=== PATIENT | male | born 1950 | race Caucasian/White ===

== ENCOUNTER 2017-12-01 14:17 | Observation (INO) ==
--- NOTE | 2017-12-01 14:24 | Emergency Department Note ---
Disposition Clinical Impression: Neck pain Disposition: Home, Self-Care Condition: Good Reasons to Return/Additional Instructions: Follow-up with your primary care physician/pain specialist and Cancer Center within the next 1-2 days for reevaluation. Please return sooner to the ER for any new or worsening symptoms such as worsening pain, development of fevers, nausea, vomiting, numbness, tingling, weakness. Referrals: Jamir Villanueva MD [Primary Care Provider] - Forms: ED Satisfaction Letter Time of Disposition: 18:54 Neck Injury/Pain HPI - General Chief Complaint: ED Neck Pain/Injury Stated Complaint: severe neck pain, sent from [facility] for scans Time Seen by Provider: 12/01/17 14:24 Source: patient Mode of arrival: ambulatory Limitations: no limitations Nursing Notes Reviewed: Yes Vital Signs Reviewed: Yes - History of Present Illness HPI Narrative: Patient is a 66-year-old male with past medical history of multiple myeloma, hypertension, diabetes. He has subsequent chronic back pain, spinal stimulator , morphine pump. He presents today due to sudden onset of neck discomfort. He began having neck discomfort around 9 AM this morning. He was not exerting himself, did not have any falls. He was seen at the cancer center and was given Dilaudid. He states that this did not help with his pain at all. He was sent over from the cancer center for concern for possible bony lesion of the cervical spine. They requested imaging of the neck. The patient himself denies any numbness, tingling, weakness, testing, shortness of breath, nausea, vomiting, fevers, diarrhea, abdominal pain, headache. - Related Data Home Medications Medication Instructions Recorded Confirmed Escitalopram [Lexapro] 20 mg PO DAILY 07/27/17 12/01/17 Levothyroxine [Synthroid] 112 mcg PO 0630 07/27/17 12/01/17 Metformin HCl [Metformin HCl ER] 1,000 mg PO DAILY 07/27/17 12/01/17 Omeprazole [PriLOSEC] 20 mg PO BID 07/27/17 12/01/17 amLODIPine [Norvasc] 5 mg PO DAILY 07/27/17 12/01/17 HYDROcodone/Acet 5/325 mg [[place] 1 tab PO Q6H PRN 12/01/17 12/01/17 5-325 mg] Morphine Sulfate/Pf [Morphine 1 each IT AD 12/01/17 12/01/17 IntraThecdal Pump] Tramadol HCl [Ultram] 50 mg PO BID PRN 12/01/17 12/01/17 Previous Rx's Medication Instructions Recorded Aspirin 81 mg PO DAILY #30 tab.chew 07/13/17 Ondansetron HCl [Zofran] 4 mg PO Q8H PRN #30 tablet 07/13/17 Prochlorperazine Maleate 10 mg PO Q6HR PRN #60 tablet 07/13/17 [Compazine] ALPRAZolam [Xanax 0.25 MG Tablet] 0.25 mg PO BID PRN #60 tablet 07/27/17 Lactulose 10 gm PO BID PRN #200 solution 08/26/17 Hydrocortisone 1% CREAM [Cortaid] 28 appl TP DAILY #1 bottle 10/13/17 Nystatin [Nystatin Suspension] 100,000 unit PO QID #1 bottle 10/27/17 Lenalidomide [Revlimid] 10 mg PO DAILY #21 capsule 11/09/17 Allergies Allergy/AdvReac Type Severity Reaction Status Date / Time lisinopril Allergy Swelling Verified 11/10/17 13:41 of Lip/Tongue/Throat All systems ED: reviewed and negative except as stated. Constitutional: Denies: fever Cardiovascular: Denies: chest pain Respiratory: Denies: cough, dyspnea Gastrointestinal: Denies: abdominal pain, nausea, vomiting, diarrhea Genitourinary: Denies: urgency Musculoskeletal: Reports: neck pain. Denies: back pain Neurological: Denies: headache, weakness, numbness, paresthesias Past Medical History - Past Medical History Attestation: Yes The following information was validated with the patient. Source: patient Medical history: Reports: diabetes, hypertension, thyroid disease Psychiatric history: Reports: no psych history - Social History Smoking Status: Never smoker Smokeless Tobacco Status: No Alcohol use: Reports: none Drug use: Reports: none Physical Exam - General Limitations: no limitations General appearance: alert, anxious (Appears to be in pain) - Head Head exam: atraumatic, normocephalic, normal inspection - Eye Eye exam: Present: normal appearance, PERRL, EOMI - ENT ENT exam: normal exam, normal oropharynx, mucous membranes moist - Neck Neck exam: Present: normal inspection, trachea midline, tenderness (Significant tenderness to spinous process of C5-C6, paraspinal muscles CT of C6 on the right. Significant pain with any ROM testing ) - Chest Chest inspection: Present: normal inspection, symmetric chest wall rise - Respiratory Respiratory exam: Present: normal lung sounds bilaterally - Cardiovascular Cardiovascular exam: Present: regular rate, normal rhythm, normal heart sounds - Abdominal Exam Abdominal exam: Present: soft, Non-Tender. Absent: tenderness, distention, guarding, rebound, rigidity - Extremities Exam Extremities exam: Present: normal inspection, full ROM. Absent: tenderness, pedal edema - Neurological Exam Neurological exam: Present: alert, oriented X3, CN II-XII intact. Absent: motor sensory deficit - Psychiatric Psychiatric exam: Present: normal affect, normal mood - Skin Skin exam: Present: warm, dry, intact, normal color Course Course Narrative: Vitals were within normal limits on my exam. Physical exam shows: Significant tenderness to spinous process of C5-C6, paraspinal muscles CT of C6 on the right. Significant pain with any ROM testing. No focal neurologic deficits. We will obtain CT of the cervical spine, CBC BMP. Patient received 1 mg of Dilaudid prior to coming in. We will give the patient 10 mg of morphine. His CT without contrast is negative, will progress to CTA of the neck. 18:54 CTA negative for any acute arterial abnormality. CT without contrast shows no acute rally, it did show moderate multilevel degenerative changes. Patient was reassessed, he is now pain control after 2 doses of morphine. He states that he wants to go home at this time. I offered admission for further pain control and further assessment of his neck discomfort but he declined. He has pain medication at home that he states he will take, will follow up with cancer Center and pain specialist in the next 1-2 days for reevaluation. Cervical Spine CT 12/01/17 14:47 IMPRESSION: No acute abnormality of the cervical spine. Moderate multilevel degenerative changes. D/ / Nixon Duong MD / Nixon Duong MD Interpreting Provider: Nixon Duong MD Neck CTA 12/01/17 15:56 IMPRESSION: 1. No acute arterial abnormality or hemodynamically significant arterial stenosis in the neck. 2. Mild atherosclerotic plaque involving the proximal internal carotid arteries causing less than 25% stenosis. 3. [id number] multilevel degenerative disc disease. D/ / Percy Espinoza / Percy Espinoza Interpreting Provider: Percy Espinoza Vital Signs Temperature 97.6 F 12/01/17 14:18 Pulse Rate 68 12/01/17 14:18 Respiratory Rate 26 12/01/17 14:18 Blood Pressure 121/79 12/01/17 14:18 O2 Sat by Pulse Oximetry 98 12/01/17 14:18 Temperature 97.6 F 12/01/17 14:27 Pulse Rate 74 12/01/17 17:06 Respiratory Rate 18 12/01/17 17:06 Blood Pressure 129/79 12/01/17 17:06 O2 Sat by Pulse Oximetry 95 12/01/17 17:06 Oxygen Delivery Oxygen Delivery Room Air Neck Pain - MDM Narrative Medical decision making narrative: Vitals were within normal limits on my exam. Physical exam shows: Significant tenderness to spinous process of C5-C6, paraspinal muscles CT of C6 on the right. Significant pain with any ROM testing. No focal neurologic deficits. We will obtain CT of the cervical spine, CBC BMP. Patient received 1 mg of Dilaudid prior to coming in. We will give the patient 10 mg of morphine. His CT without contrast is negative, will progress to CTA of the neck. 18:54 CTA negative for any acute arterial abnormality. CT without contrast shows no acute rally, it did show moderate multilevel degenerative changes. Patient was reassessed, he is now pain control after 2 doses of morphine. He states that he wants to go home at this time. I offered admission for further pain control and further assessment of his neck discomfort but he declined. He has pain medication at home that he states he will take, will follow up with cancer Center and pain specialist in the next 1-2 days for reevaluation. Cervical Spine CT 12/01/17 14:47 IMPRESSION: No acute abnormality of the cervical spine. Moderate multilevel degenerative changes. D/ / Nixon Duong MD / Nixon Duong MD Interpreting Provider: Nixon Duong MD Patient has a degenerative changes of the cervical spine. Rented a CTA of the area to make sure this is not a vascular issue. Cervical Spine CT 12/01/17 14:47 IMPRESSION: No acute abnormality of the cervical spine. Moderate multilevel degenerative changes. D/ / Nixon Duong MD / Nixon Duong MD Interpreting Provider: Nixon Duong MD Neck CTA 12/01/17 15:56 IMPRESSION: 1. No acute arterial abnormality or hemodynamically significant arterial stenosis in the neck. 2. Mild atherosclerotic plaque involving the proximal internal carotid arteries causing less than 25% stenosis. 3. Mshw-xf-whajwhei multilevel degenerative disc disease. D/ / Percy Espinoza / Percy Espinoza Interpreting Provider: Percy Espinoza 1840 hrs.: Patient's CTA and CT only showed degenerative changes of the cervical spine. Were in to see if he has better pain control final he is managing his pain management and follow-up with them. - Medical Records Medical records reviewed: Yes I reviewed the patient's medical records. - Lab Data Lab results reviewed: Yes I reviewed the patient's lab results. Result diagrams: 12/01/17 14:51 12/01/17 14:51 Lab Results 12/01/17 12/01/17 Range/Units 14:51 14:51 WBC 4.8 (4.3-11.1) K/mcL RBC 3.87 L (4.19-5.50) M/mcL Hgb 12.3 L (12.9-16.9) g/dL Hct 35.9 L (37.5-50.1) % MCV 92.8 (83.0-100.0) fL MCH 31.8 (28.0-33.3) pg MCHC 34.3 (31.6-35.5) g/dL RDW 16.5 H (11.5-14.5) % Plt Count 118 L (140-400) K/mcL MPV 11.7 (9.4-12.4) fL Immature Gran % 0.4 (0-4) % Seg Neutrophils % 47.4 % Lymphocytes % 28.4 % Monocytes % 10.3 % Eosinophils % 12.0 % Basophils % 1.5 % Neutrophils # 2.3 (1.6-8.9) K/mcL Lymphocytes # 1.4 (0.6-4.6) K/mcL Monocytes # 0.5 (0.0-1.3) K/mcL Eosinophils # 0.6 (0.0-0.6) K/mcL Basophils # 0.1 (0.0-0.2) K/mcL Nucleated RBCs/100 WBC 0.4 H (0) /100 WBC Sodium 137 (136-145) mEq/L Potassium 3.4 L (3.5-5.1) mEq/L Chloride 103 (98-107) mEq/L Carbon Dioxide 25 (23-29) mEq/L BUN 7 L (8-23) mg/dL Creatinine 0.78 (0.70-1.30) mg/dL Est GFR ( Amer) > 60 (> 60) Est GFR (Non-Af Amer) > 60 (> 60) BUN/Creatinine Ratio 9 (6-26) Glucose 131 H (70-105) mg/dL Calculated Osmolality 284 (280-300) Calcium 8.6 (8.6-10.3) mg/dL - Radiology Data Radiology results reviewed: Yes I reviewed the patient's radiology results. Cervical Spine CT 12/01/17 14:47 IMPRESSION: No acute abnormality of the cervical spine. Moderate multilevel degenerative changes. D/ / Nixon Duong MD / Nixon Duong MD Interpreting Provider: Nixon Duong MD Neck CTA 12/01/17 15:56 IMPRESSION: 1. No acute arterial abnormality or hemodynamically significant arterial stenosis in the neck. 2. Mild atherosclerotic plaque involving the proximal internal carotid arteries causing less than 25% stenosis. 3. Oyuo-bw-[id number] multilevel degenerative disc disease. D/ / Percy Espinoza / Percy Espinoza Interpreting Provider: Percy Espinoza
[2017-12-01] MEDS ORDERED: *HR* Morphine 2 MG/ML SYRINGE IVP ONE ×2 (14:47→16:58)
[2017-12-01 15:23] LABS: Basophils # 0.1 K/mcL (0.0-0.2); Basophils % 1.5 %; Eosinophils # 0.6 K/mcL (0.0-0.6); Hematocrit 35.9 % (37.5-50.1); Hemoglobin 12.3 g/dL (12.9-16.9); Immature Granulocytes % 0.4 % (0-4); Lymphocytes # 1.4 K/mcL (0.6-4.6); Lymphocytes % 28.4 %; Mean Corpuscular HGB Conc 34.3 g/dL (31.6-35.5); Mean Corpuscular Hemoglobin 31.8 pg (28.0-33.3); Mean Corpuscular Volume 92.8 fL (83.0-100.0); Mean Platelet Volume 11.7 fL (9.4-12.4); Monocytes # 0.5 K/mcL (0.0-1.3); Monocytes % 10.3 %; Neutrophils # 2.3 K/mcL (1.6-8.9); Nucleated Red Blood Cells 0.4 /100 WBC (0); Platelet Count 118 K/mcL (140-400); Red Blood Count 3.87 M/mcL (4.19-5.50); Red Cell Distribution Width 16.5 % (11.5-14.5); Segmented Neutrophils % 47.4 %
[2017-12-01 15:38] LABS: BUN/Creatinine Ratio 9 (6-26); Blood Urea Nitrogen 7 mg/dL (8-23); Calcium 8.6 mg/dL (8.6-10.3); Carbon Dioxide 25 mEq/L (23-29); Chloride 103 mEq/L (98-107); Glucose 131 mg/dL (70-105); Osmolality,Calculated 284 (280-300); Potassium 3.4 mEq/L (3.5-5.1); Sodium 137 mEq/L (136-145); eGFR For African Americans > 60 (> 60); eGFR For Non-African Americans > 60 (> 60)
[2017-12-01] MEDS ORDERED: 0.9 % Sodium Chloride 1,000 ML IVC ONE (15:57)
[2017-12-01] MEDS ORDERED: Isovue-370 500 ML INFUS..BTL IV ONE (18:08)
--- NOTE | 2017-12-01 19:50 | Internal Med History&Physical ---
Date of Encounter: 12/01/17 Time of Encounter: 19:48 Internal Medicine - H&P: HPI History of present illness: Mr. Dotson is a 66 year old male with a history of chronic lower back pain status post spinal stimulator 8 years ago and a morphine pain pump roughly 6-7 years ago under the care of Dr. Weir at the [facility], recently diagnosed multiple myeloma in July 2017 with findings of a fracture currently on Revlimid and Velcade therapy who presents with acute onset neck pain since 9 AM this morning. On review he denies any trauma nor did he wake up with the pain. He developed sudden neck pain at 9 AM, 10 out of 10, sharp in quality and unable to get comfortable. Symptoms did not improve with time leading to ER presentation. Last week he was recently prescribed tramadol for rib pain. Has multiple myeloma is treated by Dr. Cain at [facility] and Dr. Ibarra at [facility] CT/CT angio neck IMPRESSION: 1. No acute arterial abnormality or hemodynamically significant arterial stenosis in the neck. 2. Mild atherosclerotic plaque involving the proximal internal carotid arteries causing less than 25% stenosis. 3. Xnzf-iy-[id number] multilevel degenerative disc disease. CT/CT cervical spine wo con IMPRESSION: No acute abnormality of the cervical spine. Moderate multilevel degenerative changes. Past Med Surg Social Fam HX - Past Medical History Medical history: diabetes, hypertension, thyroid disease Additional medical history: hernia Psychiatric history: no psych history - Past Surgical History Additional surgical history: morphine pump back stimulator and kiney stimulator - Social History Smoking Status: Never smoker Smokeless Tobacco Status: No Alcohol use: none Drug use: none Internal Medicine - H&P: Meds Aspirin 81 mg PO DAILY #30 tab.chew 07/13/17 [Rx] Ondansetron HCl [Zofran] 4 mg PO Q8H PRN #30 tablet 07/13/17 [Rx] Prochlorperazine Maleate [Compazine] 10 mg PO Q6HR PRN #60 tablet 07/13/17 [Rx] ALPRAZolam [Xanax 0.25 MG Tablet] 0.25 mg PO BID PRN #60 tablet 07/27/17 [Rx] Escitalopram [Lexapro] 20 mg PO DAILY 07/27/17 [History] Levothyroxine [Synthroid] 112 mcg PO 0630 07/27/17 [History] Metformin HCl [Metformin HCl ER] 1,000 mg PO DAILY 07/27/17 [History] Omeprazole [PriLOSEC] 20 mg PO BID 07/27/17 [History] amLODIPine [Norvasc] 5 mg PO DAILY 07/27/17 [History] Lactulose 10 gm PO BID PRN #200 solution 08/26/17 [Rx] Hydrocortisone 1% CREAM [Cortaid] 28 appl TP DAILY #1 bottle 10/13/17 [Rx] Nystatin [Nystatin Suspension] 100,000 unit PO QID #1 bottle 10/27/17 [Rx] Lenalidomide [Revlimid] 10 mg PO DAILY #21 capsule 11/09/17 [Rx] HYDROcodone/Acet 5/325 mg [[place] 5-325 mg] 1 tab PO Q6H PRN 12/01/17 [History] Morphine Sulfate/Pf [Morphine IntraThecdal Pump] 1 each IT AD 12/01/17 [History] Tramadol HCl [Ultram] 50 mg PO BID PRN 12/01/17 [History] 3 Allergy/AdvReac Type Severity Reaction Status Date / Time lisinopril Allergy Swelling Verified 11/10/17 13:41 of Lip/Tongue/Throat All Systems PM: A 10-system review of systems was performed and is negative for pertinent findings except as documented above in the HPI. Review of systems: ROS 14 point review of systems reviewed as best as possible given presentation. Pertinent positive or negative as per HPI or otherwise reviewed as negative - Constitutional Vitals: Temp Pulse Resp BP Pulse Ox 97.6 F 74 18 129/79 95 12/01/17 14:27 12/01/17 17:06 12/01/17 17:06 12/01/17 17:06 12/01/17 17:06 Exam: General - AAO x 3 Psych - Appropriate affect/speech. No agitation Eyes - YOBANI. Eye lids intact. No scleral icterus Neuro - No gross peripheral or central neuro deficits on inspection Heart - Sinus. RRR. S1 and S2 present. No added HS/murmurs appreciated. No elevated JVD appreciated. Lung - Adequate air entry b/l, No crackles/wheezes appreciated GI - Soft, non-tender. No hepatosplenomegaly/ascites. BS+ - No CVA/suprapubic tenderness or palpable bladder distension Skin - Intact. No rash/petechiae/ecchymosis. Warm extremities. +1 bilateral lower extremity edema MSK - stiffness of the neck muscle, worse with range of movement Internal Med - H&P Results - Labs CBC & Chem 7: 12/01/17 14:51 12/01/17 14:51 Labs: Short CBC 12/01/17 Range/Units 14:51 WBC 4.8 (4.3-11.1) K/mcL Hgb 12.3 L (12.9-16.9) g/dL Hct 35.9 L (37.5-50.1) % Plt Count 118 L (140-400) K/mcL Neutrophils # 2.3 (1.6-8.9) K/mcL BMP 12/01/17 14:51 Sodium 137 Potassium 3.4 L Chloride 103 Carbon Dioxide 25 BUN 7 L Creatinine 0.78 Glucose 131 H Calcium 8.6 - Impressions ITS Impressions Cervical Spine CT 12/01/17 14:47 IMPRESSION: No acute abnormality of the cervical spine. Moderate multilevel degenerative changes. D/ / Nixon Duong MD / Nixon Duong MD Interpreting Provider: Nixon Duong MD Neck CTA 12/01/17 15:56 IMPRESSION: 1. No acute arterial abnormality or hemodynamically significant arterial stenosis in the neck. 2. Mild atherosclerotic plaque involving the proximal internal carotid arteries causing less than 25% stenosis. 3. Xkqw-yn-cbyyhyob multilevel degenerative disc disease. D/ / Percy Espinoza / Percy Espinoza Interpreting Provider: Percy Espinoza - Assessment and plan (1) Acute torticollis Current Visit: Yes Status: Acute Assessment and plan: We will treat acute neck spasms with scheduled zanaflex, PO/IV pain med Will monitor course closely (2) Myeloma Current Visit: No Status: Acute Assessment and plan: Currently on therapy. Qualifiers: Multiple myeloma remission status: not in remission Qualified Code(s): C90.00 - Multiple myeloma not having achieved remission (3) DJD (degenerative joint disease) Current Visit: Yes Status: Acute Assessment and plan: Low back pain status post pain pump and spinal stimulator. Qualifiers: Osteoarthritis location: spine Spinal osteoarthritis complication: other spinal osteoarthritis Qualified Code(s): M47.896 - Other spondylosis, lumbar region - Time Spent With Patient Total time spent is greater than 50% in coordination of care (as documented) at patient's floor/unit and/or counseling patient:
[2017-12-01] MEDS ORDERED: Naloxone 0.4 MG/ML INJ IVP PRN (19:54)
[2017-12-01] MEDS ORDERED: *HR* Morphine 2 MG/ML SYRINGE IVP PRN (19:56)
[2017-12-01] MEDS ORDERED: Ondansetron ODT 4 MG TAB.RAPDIS PO PRN (19:57)
[2017-12-01] MEDS ORDERED: Lactulose Oral Soln 20 GM/30 ML UDC PO PRN (19:58)
[2017-12-01] MEDS ORDERED: 0.9 % Sodium Chloride 1,000 ML IVC SCH (20:00)
[2017-12-01] MEDS ORDERED: Dextrose Gel 15 GM/37.5 ML TUBE PO PRN ×2 (20:01)
[2017-12-01] MEDS ORDERED: *HR* Dextrose 50 % in Water (Syg) 50 ML SYRINGE IVP PRN (20:01)
[2017-12-01] MEDS ORDERED: D5% in Water 1,000 ML IVC PRN (20:01)
[2017-12-01] MEDS ORDERED: Insulin LISPRO 300 UNITS/3 ML VIAL SQ SCH (21:00)
[2017-12-01] MEDS: tiZANidine 4 MG TABLET PO SCH (21:55)
[2017-12-02] MEDS: *HR* HYDROcodone/Acet 5/325 mg TABLET PO PRN ×2 (04:19→09:53)
[2017-12-02] MEDS ORDERED: *HR* Enoxaparin 30 MG/0.3 ML SYRINGE SQ SCH (06:00)
[2017-12-02] MEDS ORDERED: Insulin LISPRO 300 UNITS/3 ML VIAL SQ SCH (07:30)
[2017-12-02] MEDS ORDERED: Aspirin 81 MG TAB.CHEW PO SCH (09:00)
[2017-12-02] MEDS ORDERED: Lenalidomide [Revlimid] 10 MG PO SCH (09:00)
[2017-12-02] MEDS ORDERED: amLODIPine 5 MG TABLET PO SCH (09:00)
[2017-12-02] MEDS ORDERED: NON-FORMULARY MEDICATION 1 EACH EACH (Metformin Hcl [Metformin Hcl Er] 1,000 MG) PO SCH (09:00)
[2017-12-02] MEDS: tiZANidine 4 MG TABLET PO SCH (09:32)
[2017-12-02] MEDS ORDERED: tiZANidine 4 MG TABLET PO SCH (10:00)
[2017-12-02 10:12] VITALS: BP 124/68
--- NOTE | 2017-12-02 10:33 | Discharge Summary ---
Date of Encounter: 12/02/17 Time of Encounter: 09:00 - Discharge Diagnosis (1) Myeloma Priority: Secondary Status: Acute Assessment and Plan: Currently on therapy. Qualifiers: Multiple myeloma remission status: not in remission Qualified Code(s): C90.00 - Multiple myeloma not having achieved remission (2) Acute torticollis Priority: Primary Status: Acute Assessment and Plan: We will treat acute neck spasms with scheduled zanaflex, PO/IV pain med Will monitor course closely (3) DJD (degenerative joint disease) Priority: Secondary Status: Acute Assessment and Plan: Low back pain status post pain pump and spinal stimulator. Qualifiers: Osteoarthritis location: spine Spinal osteoarthritis complication: other spinal osteoarthritis Qualified Code(s): M47.896 - Other spondylosis, lumbar region Hospital course: Mr. Dotson is a 66 year old male with a history of chronic lower back pain status post spinal stimulator 8 years ago and a morphine pain pump roughly 6-7 years ago under the care of Dr. Weir at the [facility], recently diagnosed multiple myeloma in July 2017 with findings of a fracture currently on Revlimid and Velcade therapy who presents with acute onset neck pain since 9 AM this morning. On review he denies any trauma nor did he wake up with the pain. He developed sudden neck pain at 9 AM, 10 out of 10, sharp in quality and unable to get comfortable. Symptoms did not improve with time leading to ER presentation. Last week he was recently prescribed tramadol for rib pain. Has multiple myeloma is treated by Dr. Cain at [facility] and Dr. Ibarra at [facility] 12/02: Patient had a CT of the cervical spine without contrast which showed no acute abnormalities, it did mention moderate multilevel DJD. In emergency room he also had a CT angiogram of his neck which showed no significant abnormality. Pt was given Zanaflex and had improvement in his symptoms. Patient's neck pain appeared muscular in nature. It was posterior neck, much worse when turning head to the right or the left. When he initially presented he had very restricted motion of his neck. This morning it is much improved and he is asking to go home. No fevers or chills. No other complaints. Patient deemed stable for discharge. He will follow-up with his primary care provider and oncologist as scheduled. Patient was given a prescription for Zanaflex, 10 day supply. Discharge discussed with: patient - Time Spent with Patient Total time spent providing and/or coordinating discharge services: 15 Less than 30 minutes - Discharge Medications Home Medications: Aspirin 81 mg PO DAILY #30 tab.chew 07/13/17 [Rx] Ondansetron HCl [Zofran] 4 mg PO Q8H PRN #30 tablet 07/13/17 [Rx] Prochlorperazine Maleate [Compazine] 10 mg PO Q6HR PRN #60 tablet 07/13/17 [Rx] Escitalopram [Lexapro] 20 mg PO DAILY 07/27/17 [History] Levothyroxine [Synthroid] 112 mcg PO 0630 07/27/17 [History] Metformin HCl [Metformin HCl ER] 1,000 mg PO DAILY 07/27/17 [History] Omeprazole [PriLOSEC] 20 mg PO BID 07/27/17 [History] amLODIPine [Norvasc] 5 mg PO DAILY 07/27/17 [History] Lactulose 10 gm PO BID PRN #200 solution 08/26/17 [Rx] Lenalidomide [Revlimid] 10 mg PO DAILY #21 capsule 11/09/17 [Rx] HYDROcodone/Acet 5/325 mg [[place] 5-325 mg] 1 tab PO Q6H PRN 12/01/17 [History] Morphine Sulfate/Pf [Morphine IntraThecdal Pump] 1 each IT AD 12/01/17 [History] Allergies/Adverse Reactions: 3 Allergy/AdvReac Type Severity Reaction Status Date / Time lisinopril Allergy Swelling Verified 11/10/17 13:41 of Lip/Tongue/Throat Date of admission: 12/01/17 20:02 Primary care physician: Jamir Villanueva MD Discharging clinician: Remi Collado Anticipated date of discharge: 12/02/17 - Constitutional Vitals: Temp Pulse Resp BP Pulse Ox 98.0 F 60 15 124/68 96 12/02/17 10:04 12/02/17 10:04 12/02/17 10:04 12/02/17 10:04 12/02/17 10:04 - Head Head exam: Present: atraumatic, normocephalic - Eye Eye exam: Present: PERRL, conjuntiva pink, sclera anicteric Pupils: Present: PERRL - Neck Neck exam general surgery: Present: supple, trachea midline. Absent: lymphadenopathy Additional comments: Mild muscular tenderness to palpation in the neck. Range of motion is much improved from admission but not fully yet. - Respiratory Respiratory exam: Present: CTAB. Absent: accessory muscle use, rales, rhonchi, wheezes - Cardiovascular Cardiovascular exam: Present: RRR, +S1, +S2. Absent: diastolic murmur, gallop, rubs, systolic murmur - GI/Abdominal GI/Abdominal exam: Present: normal bowel sounds, soft, no peritoneal signs. Absent: distended, tenderness - Extremities Exam Extremities exam: Present: warm, radial pulses palpable and symmetrical. Absent : calf tenderness, cyanotic, pedal edema - Neurological Exam Neurological exam: Present: CN II-XII intact, oriented X3, no focal deficits. Absent: pronater drift, facial droop, speech deficit - Skin Skin exam: Present: dry, intact - Patient Status Disposition: Home, Self-Care Condition: Good Overall status at discharge: patient is progressing back to baseline - Discharge Instructions Follow Up With: Jamir Villanueva MD [Primary Care Provider] -
== END 2017-12-02 11:49 | disposition home or self-care (01) ==
LOC: 3ANU 14:17 → EMEROO 14:17 → 3ANU 20:26
PROVIDERS: ADMIT Internal Medicine Hematology & Oncology; ATTEND Internal Medicine Hematology & Oncology

== ENCOUNTER 2021-12-14 15:26 | Inpatient (IN) ==
[2021-12-14] MEDS ORDERED: *HR* Amiodarone 150 MG/3 ML VIAL IVPB ONE (16:09)
[2021-12-14] MEDS ORDERED: 0.9 % Sodium Chloride 1,000 ML ONE (16:09)
[2021-12-14] MEDS ORDERED: 0.9 % Sodium Chloride 1,000 ML IVC ONE (16:15)
[2021-12-14] MEDS ORDERED: Amiodarone Premix 150 MG/100 ML BAG IVPB ONE (16:17)
[2021-12-14 16:28] LABS: VBG HCO3 22 mEq/L (21-27); VBG PCO2 34 mmHg (41-51); VBG PH 7.42 pH Units (7.32-7.42); VBG PO2 75 mmHg (25-50)
[2021-12-14 16:29] LABS: Eosinophils % 0.7 %; Nucleated Red Blood Cells 5.5 /100 WBC (0); Red Cell Distribution Width 16.4 % (11.5-14.5)
[2021-12-14 16:31] LABS: Basophils % 0.7 %; Hematocrit 20.2 % (37.5-50.1); Hemoglobin 6.5 g/dL (12.9-16.9); Immature Granulocytes % 19.6 % (0-4); Immature Platelets 2.6 % (1.1-6.1); Lymphocytes # 1.3 K/mcL (0.6-4.6); Lymphocytes % 28.3 %; Mean Corpuscular HGB Conc 32.2 g/dL (31.6-35.5); Mean Corpuscular Hemoglobin 31.7 pg (28.0-33.3); Mean Corpuscular Volume 98.5 fL (83.0-100.0); Mean Platelet Volume 11.3 fL (9.4-12.4); Monocytes # 0.8 K/mcL (0.0-1.3); Neutrophils # 1.5 K/mcL (1.6-8.9); Red Blood Count 2.05 M/mcL (4.19-5.50); Segmented Neutrophils % 33.7 %; White Blood Count 4.5 K/mcL (4.3-11.1)
[2021-12-14 16:37] LABS: Platelet Count 40 K/mcL (140-400)
[2021-12-14 16:42] LABS: INR 1.5; Prothrombin Time 16.6 Seconds (9.4-12.1)
[2021-12-14 16:45] LABS: Activated Partial Thrombo Time 32.9 Seconds (26.0-36.0)
[2021-12-14 16:51] LABS: Alanine Aminotransferase 20 Units/L (7-52); Albumin 2.8 g/dL (3.5-5.7); Albumin/Globulin Ratio 0.6 (1.1-2.2); Alkaline Phosphatase 108 Units/L (34-104); Aspartate Amino Transferase 27 Units/L (13-39); BUN/Creatinine Ratio 8 (6-26); Bilirubin,Direct 0.6 mg/dL (0.0-0.2); Bilirubin,Indirect 1.3 mg/dL (0.0-1.0); Bilirubin,Total 1.9 mg/dL (0.3-1.0); Blood Urea Nitrogen 12 mg/dL (8-23); Calcium 8.5 mg/dL (8.6-10.3); Carbon Dioxide 23 mEq/L (23-29); Chloride 99 mEq/L (98-107); Globulin 4.5 g/dL (2.4-3.5); Glucose 174 mg/dL (70-105); Magnesium 1.9 mg/dL (1.6-2.6); Osmolality,Calculated 276 (280-300); Phosphorous 2.4 mg/dL (2.7-4.5); Potassium 3.5 mEq/L (3.5-5.1); Sodium 131 mEq/L (136-145); Total Protein 7.3 g/dL (6.4-8.9); Troponin I < 0.03 ng/mL (< 0.04); eGFR For African Americans 60 (> 60); eGFR For Non-African Americans 49 (> 60)
[2021-12-14 17:04] LABS: Thyroid Stimulating Hormone 8.019 mcIU/mL (0.340-5.600)
[2021-12-14 17:15] LABS: Platelet Estimate Decreased (Normal); Reactive Lymphocytes Present (Not Present)
[2021-12-14] MEDS ORDERED: Piperacillin/Tazobactam 3.375 GM in 0.9 % Sodium Chloride Mini Bag 100 ML IVPB ONE (17:29)
[2021-12-14] MEDS ORDERED: Vancomycin 2,000 MG/520 ML IV.SOLN IVPB ONE (17:29)
[2021-12-14 17:32] LABS: Bilirubin,Urine Negative (Negative); Blood,Urine Negative (Negative); Clarity,Urine Clear (Clear); Color,Urine Yellow (Yellow); Glucose,Urine (UA) Normal (Normal); Ketones,Urine Negative (Negative); Leukocyte Esterase,Urine Negative (Negative); Nitrite,Urine Negative (Negative); PH,Urine 6.5 pH Units (5.0-8.0); Protein,Urine Negative (Neg-Trace); Specific Gravity,Urine 1.011 (1.010-1.025)
[2021-12-14] MEDS ORDERED: Pantoprazole 40 MG VIAL IVP ONE (17:40)
[2021-12-14] MEDS ORDERED: 0.9 % Sodium Chloride 250 ML ONE ×2 (18:22→23:18)
[2021-12-14 19:41] LABS: Influenza A PCR Negative (Negative); Influenza B PCR Negative (Negative); Resp. Syncytial Virus PCR Negative (Negative)
[2021-12-14 19:46] LABS: SARS-CoV-2 by PCR (In House) Negative (Negative)
[2021-12-14] MEDS ORDERED: Naloxone 0.4 MG/ML INJ IVP PRN (20:09)
[2021-12-14] MEDS ORDERED: Ondansetron ODT 4 MG TAB.RAPDIS SL PRN (20:09)
[2021-12-14] MEDS ORDERED: D5% in Water 1,000 ML IVC PRN (20:59)
[2021-12-14] MEDS ORDERED: *HR* Dextrose 50 % in Water (Syg) 50 ML SYRINGE IVP PRN (20:59)
[2021-12-14] MEDS ORDERED: Dextrose Gel 15 GM/37.5 ML TUBE PO PRN ×2 (20:59)
[2021-12-14] MEDS: 0.9 % Sodium Chloride 1,000 ML IVC SCH (23:43)
[2021-12-15] MEDS ORDERED: *HR* HYDROcodone/Acet 5/325 mg TABLET PO ONE (02:43)
[2021-12-15] MEDS ORDERED: 0.9 % Sodium Chloride 250 ML ONE ×2 (03:04→13:41)
[2021-12-15] MEDS: Piperacillin/Tazobactam 3.375 GM in 0.9 % Sodium Chloride Mini Bag 100 ML IVPB SCH ×2 (05:52→18:59)
[2021-12-15] MEDS: Pantoprazole 40 MG VIAL IVP SCH ×2 (05:53→19:01)
[2021-12-15] MEDS ORDERED: Vancomycin 2,000 MG/520 ML IV.SOLN IVPB SCH (07:00)
[2021-12-15] MEDS: Insulin LISPRO 300 UNITS/3 ML VIAL SUBQ SCH ×3 (07:30→17:56)
[2021-12-15 07:58] LABS: Hemoglobin 7.7 g/dL (12.9-16.9); Immature Platelets 2.3 % (1.1-6.1); Mean Corpuscular HGB Conc 33.5 g/dL (31.6-35.5); Mean Corpuscular Hemoglobin 32.4 pg (28.0-33.3); Mean Corpuscular Volume 96.6 fL (83.0-100.0); Mean Platelet Volume 12.4 fL (9.4-12.4); Red Blood Count 2.38 M/mcL (4.19-5.50); Red Cell Distribution Width 17.2 % (11.5-14.5); White Blood Count 3.8 K/mcL (4.3-11.1)
[2021-12-15 08:15] LABS: % Iron Saturation 74 % (20-55); Iron 146 mcg/dL (65-175); Transferrin 141 mg/dL (203-362)
[2021-12-15 08:48] LABS: BUN/Creatinine Ratio 9 (6-26); Blood Urea Nitrogen 12 mg/dL (8-23); Carbon Dioxide 24 mEq/L (23-29); Chloride 105 mEq/L (98-107); Glucose 130 mg/dL (70-105); Osmolality,Calculated 282 (280-300); Potassium 3.6 mEq/L (3.5-5.1); Sodium 135 mEq/L (136-145); eGFR For African Americans > 60 (> 60); eGFR For Non-African Americans 55 (> 60)
[2021-12-15 10:41] LABS: Adenovirus Not Detected (Not Detect); Bordetella Pertussis Not Detected (Not Detect); Chlamydophila pneumoniae Not Detected (Not Detect); Coronavirus 229E Not Detected (Not Detect); Coronavirus HKU1 Not Detected (Not Detect); Coronavirus NL63 Not Detected (Not Detect); Coronavirus OC43 Not Detected (Not Detect); Human Metapneumovirus Not Detected (Not Detect); Human Rhinovirus/Enterovirus Not Detected (Not Detect); Influenza A Subtype 2009 H1 Not Detected (Not Detect); Influenza B Not Detected (Not Detect); Mycoplasma pneumoniae Not Detected (Not Detect); Parainfluenza Virus 1 Not Detected (Not Detect); Parainfluenza Virus 2 Not Detected (Not Detect); Parainfluenza Virus 3 Not Detected (Not Detect); Parainfluenza Virus 4 Not Detected (Not Detect); Respiratory Syncytial Virus Not Detected (Not Detect); SARS-CoV-2 Not Detected (Not Detect)
[2021-12-15] MEDS: 0.9 % Sodium Chloride 1,000 ML IVC SCH (14:00)
[2021-12-15 17:52] LABS: Hematocrit 24.7 % (37.5-50.1); Hemoglobin 8.1 g/dL (12.9-16.9)
[2021-12-15] MEDS: Vancomycin 1,500 MG/265 ML IV.SOLN IVPB SCH (19:46)
[2021-12-15 20:28] LABS: Hematocrit 26.8 % (37.5-50.1)
[2021-12-15] MEDS: Acetaminophen 325 MG TABLET PO PRN (20:37)
[2021-12-16] MEDS: 0.9 % Sodium Chloride 1,000 ML IVC SCH ×3 (03:43→17:43)
[2021-12-16] MEDS: Piperacillin/Tazobactam 3.375 GM in 0.9 % Sodium Chloride Mini Bag 100 ML IVPB SCH ×2 (05:57→17:35)
[2021-12-16] MEDS: Pantoprazole 40 MG VIAL IVP SCH ×2 (05:57→17:35)
[2021-12-16 07:04] LABS: Hematocrit 23.7 % (37.5-50.1); Hemoglobin 7.7 g/dL (12.9-16.9); Mean Corpuscular HGB Conc 32.5 g/dL (31.6-35.5); Mean Corpuscular Hemoglobin 31.6 pg (28.0-33.3); Mean Corpuscular Volume 97.1 fL (83.0-100.0); Mean Platelet Volume 10.6 fL (9.4-12.4); Red Blood Count 2.44 M/mcL (4.19-5.50); Red Cell Distribution Width 17.7 % (11.5-14.5); White Blood Count 3.4 K/mcL (4.3-11.1)
[2021-12-16 07:06] LABS: Platelet Count 34 K/mcL (140-400)
[2021-12-16 07:36] LABS: BUN/Creatinine Ratio 11 (6-26); Blood Urea Nitrogen 13 mg/dL (8-23); Carbon Dioxide 23 mEq/L (23-29); Chloride 109 mEq/L (98-107); Glucose 115 mg/dL (70-105); Osmolality,Calculated 285 (280-300); Potassium 3.6 mEq/L (3.5-5.1); Sodium 137 mEq/L (136-145); eGFR For African Americans > 60 (> 60); eGFR For Non-African Americans > 60 (> 60)
[2021-12-16] MEDS: Insulin LISPRO 300 UNITS/3 ML VIAL SUBQ SCH ×3 (07:46→16:49)
[2021-12-16] MEDS: Vancomycin 1,500 MG/265 ML IV.SOLN IVPB SCH (08:11)
[2021-12-16] MEDS ORDERED: *HR* Adenosine 6 MG/2 ML SYRINGE IVP ONE (12:45)
[2021-12-16] MEDS: Vancomycin 1,750 MG/517.5 ML IV.SOLN IVPB SCH (15:07)
[2021-12-16] MEDS ORDERED: *HR* Propofol 200 MG/20 ML VIAL IVP ONE ×2 (15:49→16:02)
[2021-12-16] MEDS ORDERED: Lidocaine -MPF 2% 2 ML VIAL ONE (15:49)
[2021-12-16] MEDS ORDERED: Lidocaine HCL 4 ML Topical Solution (Laryng-O-Jet Kit Sterile Pak) TP ONE (15:49)
[2021-12-16] MEDS ORDERED: *HR* Succinylcholine 200 MG/10 ML VIAL IVP ONE (15:49)
[2021-12-16] MEDS ORDERED: *HR* LORazepam 2 MG/ML VIAL IVP ONE (17:12)
[2021-12-16] MEDS ORDERED: SODIUM CHLORIDE/NAHCO3/KCL/PEG 4,000 ML SOLN.RECON PO ONE (17:18)
[2021-12-16] MEDS: Acetaminophen 325 MG TABLET PO PRN (23:28)
[2021-12-17] MEDS: 0.9 % Sodium Chloride 1,000 ML IVC SCH ×2 (05:01→15:19)
[2021-12-17] MEDS: Pantoprazole 40 MG VIAL IVP SCH ×2 (05:02→17:19)
[2021-12-17] MEDS: Piperacillin/Tazobactam 3.375 GM in 0.9 % Sodium Chloride Mini Bag 100 ML IVPB SCH ×2 (05:02→17:20)
[2021-12-17 06:51] LABS: Red Cell Distribution Width 17.6 % (11.5-14.5)
[2021-12-17 06:53] LABS: Hematocrit 20.7 % (37.5-50.1); Hemoglobin 6.6 g/dL (12.9-16.9); Immature Platelets 3.1 % (1.1-6.1); Mean Corpuscular HGB Conc 31.9 g/dL (31.6-35.5); Mean Corpuscular Hemoglobin 31.3 pg (28.0-33.3); Mean Corpuscular Volume 98.1 fL (83.0-100.0); Mean Platelet Volume 11.8 fL (9.4-12.4); Monocytes # 0.2 K/mcL (0.0-1.3); Nucleated Red Blood Cells 3.1 /100 WBC (0); Red Blood Count 2.11 M/mcL (4.19-5.50); White Blood Count 2.3 K/mcL (4.3-11.1)
[2021-12-17 07:13] LABS: BUN/Creatinine Ratio 11 (6-26); Blood Urea Nitrogen 13 mg/dL (8-23); Calcium 7.6 mg/dL (8.6-10.3); Carbon Dioxide 22 mEq/L (23-29); Chloride 110 mEq/L (98-107); Glucose 100 mg/dL (70-105); Osmolality,Calculated 284 (280-300); Potassium 3.5 mEq/L (3.5-5.1); Sodium 137 mEq/L (136-145); eGFR For African Americans > 60 (> 60); eGFR For Non-African Americans > 60 (> 60)
[2021-12-17] MEDS: Insulin LISPRO 300 UNITS/3 ML VIAL SUBQ SCH ×3 (07:44→19:59)
[2021-12-17 08:04] LABS: Platelet Count 27 K/mcL (140-400)
[2021-12-17 08:51] LABS: Basophils # 0.1 K/mcL (0.0-0.2); Eosinophils # 0.1 K/mcL (0.0-0.6); Lymphocytes # 0.9 K/mcL (0.6-4.6); Neutrophils # 0.8 K/mcL (1.6-8.9)
[2021-12-17 08:52] LABS: Anisocytosis 1+ (Not Present); Platelet Estimate Marked Decrease (Normal)
[2021-12-17] MEDS ORDERED: 0.9 % Sodium Chloride 250 ML ONE (09:12)
[2021-12-17 14:07] LABS: Hematocrit 25.5 % (37.5-50.1)
[2021-12-17 14:17] LABS: Hemoglobin 8.2 g/dL (12.9-16.9)
[2021-12-17] MEDS: Acetaminophen 325 MG TABLET PO PRN (16:01)
[2021-12-17] MEDS ORDERED: SODIUM CHLORIDE/NAHCO3/KCL/PEG 4,000 ML SOLN.RECON PO ONE (17:00)
[2021-12-17] MEDS: Vancomycin 1,750 MG/517.5 ML IV.SOLN IVPB SCH (17:24)
[2021-12-17] MEDS ORDERED: Amiodarone Premix 150 MG/100 ML BAG IVPB ONE (19:30)
[2021-12-18 04:09] LABS: Basophils % 0.7 %; Eosinophils % 0.4 %; Hemoglobin 7.6 g/dL (12.9-16.9); Immature Granulocytes % 4.3 % (0-4); Immature Platelets 3.4 % (1.1-6.1); Lymphocytes # 1.1 K/mcL (0.6-4.6); Lymphocytes % 37.8 %; Mean Corpuscular Hemoglobin 31.5 pg (28.0-33.3); Mean Corpuscular Volume 95.4 fL (83.0-100.0); Mean Platelet Volume 10.7 fL (9.4-12.4); Monocytes # 0.4 K/mcL (0.0-1.3); Monocytes % 12.6 %; Neutrophils # 1.2 K/mcL (1.6-8.9); Nucleated Red Blood Cells 2.5 /100 WBC (0); Red Blood Count 2.41 M/mcL (4.19-5.50); Red Cell Distribution Width 17.2 % (11.5-14.5); Segmented Neutrophils % 44.2 %; White Blood Count 2.8 K/mcL (4.3-11.1)
[2021-12-18 04:14] LABS: Platelet Count 23 K/mcL (140-400)
[2021-12-18 04:28] LABS: INR 1.5; Prothrombin Time 17.2 Seconds (9.4-12.1)
[2021-12-18 04:42] LABS: Anisocytosis 1+ (Not Present); Platelet Estimate Marked Decrease (Normal); Reactive Lymphocytes Present (Not Present)
[2021-12-18] MEDS: 0.9 % Sodium Chloride 1,000 ML IVC SCH (05:28)
[2021-12-18] MEDS: Pantoprazole 40 MG VIAL IVP SCH ×2 (05:29→18:14)
[2021-12-18] MEDS: Piperacillin/Tazobactam 3.375 GM in 0.9 % Sodium Chloride Mini Bag 100 ML IVPB SCH ×2 (05:30→18:14)
[2021-12-18 06:14] LABS: Alanine Aminotransferase 14 Units/L (7-52); Albumin 2.3 g/dL (3.5-5.7); Albumin/Globulin Ratio 0.6 (1.1-2.2); Alkaline Phosphatase 83 Units/L (34-104); Aspartate Amino Transferase 26 Units/L (13-39); BUN/Creatinine Ratio 9 (6-26); Bilirubin,Total 1.4 mg/dL (0.3-1.0); Blood Urea Nitrogen 10 mg/dL (8-23); Calcium 7.5 mg/dL (8.6-10.3); Carbon Dioxide 22 mEq/L (23-29); Chloride 108 mEq/L (98-107); Globulin 3.7 g/dL (2.4-3.5); Glucose 113 mg/dL (70-105); Osmolality,Calculated 278 (280-300); Potassium 3.6 mEq/L (3.5-5.1); Sodium 134 mEq/L (136-145); eGFR For African Americans > 60 (> 60); eGFR For Non-African Americans > 60 (> 60)
[2021-12-18] MEDS: Insulin LISPRO 300 UNITS/3 ML VIAL SUBQ SCH ×3 (11:08→18:14)
[2021-12-18] MEDS: *HR* Amiodarone 200 MG TABLET PO SCH (11:09)
[2021-12-18] MEDS ORDERED: Dexmedetomidine HCl 400 MCG/100 ML MLS IVC ONE (13:04)
[2021-12-18] MEDS ORDERED: *HR* Propofol 200 MG/20 ML VIAL IVP ONE ×2 (13:31→14:04)
[2021-12-18] MEDS ORDERED: Lidocaine -MPF 2% 2 ML VIAL ONE (14:03)
[2021-12-18] MEDS ORDERED: EPHEDrine 50 MG/ML VIAL ONE (14:09)
[2021-12-19 02:33] LABS: Hemoglobin 7.2 g/dL (12.9-16.9); Immature Granulocytes % 0.4 % (0-4); Mean Corpuscular Volume 94.4 fL (83.0-100.0)
[2021-12-19 02:35] LABS: Basophils % 0.8 %; Eosinophils # 0.1 K/mcL (0.0-0.6); Eosinophils % 2.1 %; Hematocrit 21.8 % (37.5-50.1); Immature Platelets 1.9 % (1.1-6.1); Lymphocytes # 0.9 K/mcL (0.6-4.6); Lymphocytes % 38.3 %; Mean Corpuscular Hemoglobin 31.2 pg (28.0-33.3); Mean Platelet Volume 12.2 fL (9.4-12.4); Monocytes # 0.3 K/mcL (0.0-1.3); Monocytes % 12.3 %; Neutrophils # 1.1 K/mcL (1.6-8.9); Nucleated Red Blood Cells 2.5 /100 WBC (0); Red Blood Count 2.31 M/mcL (4.19-5.50); Red Cell Distribution Width 16.8 % (11.5-14.5); Segmented Neutrophils % 46.1 %; White Blood Count 2.4 K/mcL (4.3-11.1)
[2021-12-19 02:50] LABS: Platelet Count 21 K/mcL (140-400)
[2021-12-19 02:53] LABS: BUN/Creatinine Ratio 7 (6-26); Blood Urea Nitrogen 7 mg/dL (8-23); Calcium 7.6 mg/dL (8.6-10.3); Carbon Dioxide 21 mEq/L (23-29); Chloride 109 mEq/L (98-107); Glucose 120 mg/dL (70-105); Osmolality,Calculated 281 (280-300); Potassium 3.3 mEq/L (3.5-5.1); Sodium 136 mEq/L (136-145); eGFR For African Americans > 60 (> 60); eGFR For Non-African Americans > 60 (> 60)
[2021-12-19 03:24] LABS: Hypochromasia Present (Not Present); Platelet Estimate Marked Decrease (Normal)
[2021-12-19] MEDS: Acetaminophen 325 MG TABLET PO PRN ×3 (04:17→20:31)
[2021-12-19] MEDS: Piperacillin/Tazobactam 3.375 GM in 0.9 % Sodium Chloride Mini Bag 100 ML IVPB SCH ×2 (05:53→18:24)
[2021-12-19] MEDS: Pantoprazole 40 MG VIAL IVP SCH ×2 (05:53→18:23)
[2021-12-19] MEDS ORDERED: *HR* LORazepam 2 MG/ML VIAL IVP ONE (05:55)
[2021-12-19] MEDS: 0.9 % Sodium Chloride 1,000 ML IVC SCH ×3 (06:56→20:39)
[2021-12-19] MEDS: Insulin LISPRO 300 UNITS/3 ML VIAL SUBQ SCH ×3 (08:44→18:10)
[2021-12-19] MEDS: *HR* Amiodarone 200 MG TABLET PO SCH (09:32)
[2021-12-19 12:43] LABS: Hemoglobin 7.3 g/dL (12.9-16.9)
[2021-12-20 03:42] LABS: Hemoglobin 7.2 g/dL (12.9-16.9); Nucleated Red Blood Cells 1.9 /100 WBC (0); Red Cell Distribution Width 16.6 % (11.5-14.5)
[2021-12-20 03:44] LABS: Basophils % 0.9 %; Eosinophils # 0.1 K/mcL (0.0-0.6); Eosinophils % 6.2 %; Hematocrit 22.5 % (37.5-50.1); Immature Platelets 1.5 % (1.1-6.1); Lymphocytes # 0.8 K/mcL (0.6-4.6); Lymphocytes % 39.3 %; Mean Corpuscular Hemoglobin 31.4 pg (28.0-33.3); Mean Corpuscular Volume 98.3 fL (83.0-100.0); Mean Platelet Volume 10.8 fL (9.4-12.4); Monocytes # 0.2 K/mcL (0.0-1.3); Monocytes % 8.5 %; Red Blood Count 2.29 M/mcL (4.19-5.50); Segmented Neutrophils % 45.1 %; White Blood Count 2.1 K/mcL (4.3-11.1)
[2021-12-20 03:56] LABS: Platelet Count 34 K/mcL (140-400)
[2021-12-20 04:00] LABS: BUN/Creatinine Ratio 6 (6-26); Blood Urea Nitrogen 7 mg/dL (8-23); Carbon Dioxide 23 mEq/L (23-29); Chloride 109 mEq/L (98-107); Glucose 106 mg/dL (70-105); Magnesium 2.1 mg/dL (1.6-2.6); Osmolality,Calculated 282 (280-300); Potassium 3.6 mEq/L (3.5-5.1); Sodium 137 mEq/L (136-145); eGFR For African Americans > 60 (> 60); eGFR For Non-African Americans > 60 (> 60)
[2021-12-20 04:12] LABS: Platelet Estimate Marked Decrease (Normal)
[2021-12-20] MEDS: Pantoprazole 40 MG VIAL IVP SCH ×3 (06:11→18:40)
[2021-12-20] MEDS: Insulin LISPRO 300 UNITS/3 ML VIAL SUBQ SCH ×3 (09:45→17:58)
[2021-12-20] MEDS: *HR* Amiodarone 200 MG TABLET PO SCH (09:49)
[2021-12-20] MEDS: 0.9 % Sodium Chloride 1,000 ML IVC SCH (22:03)
[2021-12-21 03:35] LABS: Hematocrit 22.1 % (37.5-50.1); Hemoglobin 7.1 g/dL (12.9-16.9); Mean Corpuscular HGB Conc 32.1 g/dL (31.6-35.5); Mean Corpuscular Hemoglobin 31.4 pg (28.0-33.3); Mean Corpuscular Volume 97.8 fL (83.0-100.0); Red Blood Count 2.26 M/mcL (4.19-5.50); Red Cell Distribution Width 16.4 % (11.5-14.5)
[2021-12-21 03:37] LABS: Immature Platelets 1.7 % (1.1-6.1); Mean Platelet Volume 10.4 fL (9.4-12.4); White Blood Count 2.9 K/mcL (4.3-11.1)
[2021-12-21 03:47] LABS: Platelet Count 28 K/mcL (140-400)
[2021-12-21 03:52] LABS: BUN/Creatinine Ratio 6 (6-26); Blood Urea Nitrogen 7 mg/dL (8-23); Calcium 8.2 mg/dL (8.6-10.3); Carbon Dioxide 24 mEq/L (23-29); Chloride 105 mEq/L (98-107); Glucose 120 mg/dL (70-105); Osmolality,Calculated 277 (280-300); Potassium 3.8 mEq/L (3.5-5.1); Sodium 134 mEq/L (136-145); eGFR For African Americans > 60 (> 60); eGFR For Non-African Americans > 60 (> 60)
[2021-12-21 04:01] LABS: Anisocytosis 1+ (Not Present); Platelet Estimate Marked Decrease (Normal); Reactive Lymphocytes Present (Not Present)
[2021-12-21 04:04] LABS: Eosinophils # 0.2 K/mcL (0.0-0.6); Lymphocytes # 1.7 K/mcL (0.6-4.6); Monocytes # 0.5 K/mcL (0.0-1.3); Neutrophils # 0.4 K/mcL (1.6-8.9)
[2021-12-21] MEDS: Pantoprazole 40 MG VIAL IVP SCH ×2 (06:36→17:53)
[2021-12-21] MEDS: *HR* Amiodarone 200 MG TABLET PO SCH (07:54)
[2021-12-21] MEDS: Insulin LISPRO 300 UNITS/3 ML VIAL SUBQ SCH ×3 (07:55→16:58)
[2021-12-21] MEDS: Acetaminophen 325 MG TABLET PO PRN (07:56)
[2021-12-21] MEDS: 0.9 % Sodium Chloride 1,000 ML IVC SCH ×2 (11:26→11:48)
[2021-12-22] MEDS: 0.9 % Sodium Chloride 1,000 ML IVC SCH ×2 (00:10→17:48)
[2021-12-22 02:29] LABS: Basophils % 0.8 %; Eosinophils % 0.4 %; Hematocrit 21.2 % (37.5-50.1); Immature Granulocytes % 8.5 % (0-4); Immature Platelets 2.3 % (1.1-6.1); Lymphocytes % 40.7 %; Mean Corpuscular Hemoglobin 31.7 pg (28.0-33.3); Mean Corpuscular Volume 95.9 fL (83.0-100.0); Mean Platelet Volume 10.7 fL (9.4-12.4); Monocytes # 0.3 K/mcL (0.0-1.3); Neutrophils # 0.9 K/mcL (1.6-8.9); Nucleated Red Blood Cells 2.1 /100 WBC (0); Red Blood Count 2.21 M/mcL (4.19-5.50); Red Cell Distribution Width 16.4 % (11.5-14.5); Segmented Neutrophils % 38.6 %; White Blood Count 2.4 K/mcL (4.3-11.1)
[2021-12-22 02:34] LABS: Platelet Count 23 K/mcL (140-400)
[2021-12-22 02:45] LABS: BUN/Creatinine Ratio 7 (6-26); Blood Urea Nitrogen 7 mg/dL (8-23); Calcium 7.9 mg/dL (8.6-10.3); Carbon Dioxide 24 mEq/L (23-29); Chloride 106 mEq/L (98-107); Glucose 103 mg/dL (70-105); Osmolality,Calculated 280 (280-300); Potassium 3.5 mEq/L (3.5-5.1); Sodium 136 mEq/L (136-145); eGFR For African Americans > 60 (> 60); eGFR For Non-African Americans > 60 (> 60)
[2021-12-22 02:47] LABS: Anisocytosis 1+ (Not Present); Platelet Estimate Marked Decrease (Normal)
[2021-12-22 02:48] LABS: Microcytosis Present (Not Present); Reactive Lymphocytes Present (Not Present)
[2021-12-22] MEDS: Pantoprazole 40 MG VIAL IVP SCH (06:06)
[2021-12-22] MEDS: Insulin LISPRO 300 UNITS/3 ML VIAL SUBQ SCH ×3 (07:34→17:35)
[2021-12-22] MEDS: *HR* Amiodarone 200 MG TABLET PO SCH (07:48)
[2021-12-22] MEDS: Acetaminophen 325 MG TABLET PO PRN (20:20)
[2021-12-22] MEDS ORDERED: *HR* HYDROcodone/Acet 5/325 mg TABLET PO ONE (23:31)
[2021-12-23 05:36] LABS: Basophils % 0.8 %; Eosinophils % 0.4 %
[2021-12-23 05:38] LABS: Hematocrit 22.2 % (37.5-50.1); Immature Granulocytes % 4.8 % (0-4); Immature Platelets 2.3 % (1.1-6.1); Lymphocytes # 1.1 K/mcL (0.6-4.6); Mean Corpuscular HGB Conc 31.5 g/dL (31.6-35.5); Mean Corpuscular Hemoglobin 31.1 pg (28.0-33.3); Mean Corpuscular Volume 98.7 fL (83.0-100.0); Mean Platelet Volume 13.1 fL (9.4-12.4); Monocytes # 0.3 K/mcL (0.0-1.3); Monocytes % 10.4 %; Nucleated Red Blood Cells 2.4 /100 WBC (0); Red Blood Count 2.25 M/mcL (4.19-5.50); Red Cell Distribution Width 16.5 % (11.5-14.5); Segmented Neutrophils % 40.6 %; White Blood Count 2.5 K/mcL (4.3-11.1)
[2021-12-23 05:47] LABS: Platelet Count 20 K/mcL (140-400)
[2021-12-23 05:55] LABS: BUN/Creatinine Ratio 8 (6-26); Blood Urea Nitrogen 8 mg/dL (8-23); Calcium 8.2 mg/dL (8.6-10.3); Carbon Dioxide 24 mEq/L (23-29); Chloride 106 mEq/L (98-107); Glucose 111 mg/dL (70-105); Osmolality,Calculated 279 (280-300); Potassium 3.7 mEq/L (3.5-5.1); Sodium 135 mEq/L (136-145); eGFR For African Americans > 60 (> 60); eGFR For Non-African Americans > 60 (> 60)
[2021-12-23 06:01] LABS: Platelet Estimate Marked Decrease (Normal)
[2021-12-23] MEDS: 0.9 % Sodium Chloride 1,000 ML IVC SCH (08:23)
[2021-12-23] MEDS: *HR* Amiodarone 200 MG TABLET PO SCH (08:24)
[2021-12-23] MEDS: Insulin LISPRO 300 UNITS/3 ML VIAL SUBQ SCH ×3 (08:24→17:06)
[2021-12-23] MEDS ORDERED: Nitroglycerin 0.4 MG TAB.SUBL SL ONE (09:38)
[2021-12-23] MEDS: Nitroglycerin 0.4 MG TAB.SUBL SL PRN ×3 (09:40→09:52)
[2021-12-23] MEDS ORDERED: Morphine Sulfate 2 MG/ML SYRINGE IVP ONE (10:05)
[2021-12-24] MEDS: Acetaminophen 325 MG TABLET PO PRN (02:37)
[2021-12-24] MEDS: *HR* Amiodarone 200 MG TABLET PO SCH (07:52)
[2021-12-24] MEDS: Insulin LISPRO 300 UNITS/3 ML VIAL SUBQ SCH ×3 (07:53→17:21)
[2021-12-24 09:08] LABS: Alanine Aminotransferase 14 Units/L (7-52); Albumin 2.3 g/dL (3.5-5.7); Albumin/Globulin Ratio 0.5 (1.1-2.2); Alkaline Phosphatase 92 Units/L (34-104); Aspartate Amino Transferase 24 Units/L (13-39); BUN/Creatinine Ratio 9 (6-26); Bilirubin,Total 1.7 mg/dL (0.3-1.0); Blood Urea Nitrogen 10 mg/dL (8-23); Calcium 8.2 mg/dL (8.6-10.3); Carbon Dioxide 24 mEq/L (23-29); Chloride 105 mEq/L (98-107); Globulin 4.4 g/dL (2.4-3.5); Glucose 130 mg/dL (70-105); Osmolality,Calculated 279 (280-300); Potassium 3.6 mEq/L (3.5-5.1); Sodium 134 mEq/L (136-145); Total Protein 6.7 g/dL (6.4-8.9); eGFR For African Americans > 60 (> 60); eGFR For Non-African Americans > 60 (> 60)
[2021-12-24 09:35] LABS: Basophils % 0.8 %; Eosinophils # 0.6 K/mcL (0.0-0.6); Eosinophils % 15.6 %; Hematocrit 22.6 % (37.5-50.1); Hemoglobin 7.4 g/dL (12.9-16.9); Immature Granulocytes % 19.3 % (0-4); Immature Platelets 3.2 % (1.1-6.1); Lymphocytes # 1.4 K/mcL (0.6-4.6); Lymphocytes % 39.4 %; Mean Corpuscular HGB Conc 32.7 g/dL (31.6-35.5); Mean Corpuscular Volume 97.8 fL (83.0-100.0); Mean Platelet Volume 13.1 fL (9.4-12.4); Monocytes # 0.2 K/mcL (0.0-1.3); Monocytes % 5.4 %; Neutrophils # 0.7 K/mcL (1.6-8.9); Nucleated Red Blood Cells 1.1 /100 WBC (0); Red Blood Count 2.31 M/mcL (4.19-5.50); Red Cell Distribution Width 16.6 % (11.5-14.5); Segmented Neutrophils % 19.5 %; White Blood Count 3.5 K/mcL (4.3-11.1)
[2021-12-24 09:43] LABS: Platelet Count 21 K/mcL (140-400)
[2021-12-24 10:13] LABS: Platelet Estimate Marked Decrease (Normal); Reactive Lymphocytes Present (Not Present)
[2021-12-24] MEDS ORDERED: 0.9 % Sodium Chloride 250 ML ONE (17:39)
[2021-12-25 06:19] LABS: Basophils # 0.1 K/mcL (0.0-0.2); Basophils % 1.4 %; Eosinophils % 0.6 %; Hematocrit 23.9 % (37.5-50.1); Hemoglobin 7.8 g/dL (12.9-16.9); Immature Granulocytes % 2.8 % (0-4); Immature Platelets 2.9 % (1.1-6.1); Lymphocytes % 37.3 %; Mean Corpuscular HGB Conc 32.6 g/dL (31.6-35.5); Mean Corpuscular Hemoglobin 31.6 pg (28.0-33.3); Mean Corpuscular Volume 96.8 fL (83.0-100.0); Monocytes # 0.4 K/mcL (0.0-1.3); Neutrophils # 1.7 K/mcL (1.6-8.9); Nucleated Red Blood Cells 1.1 /100 WBC (0); Red Blood Count 2.47 M/mcL (4.19-5.50); Red Cell Distribution Width 15.8 % (11.5-14.5); Segmented Neutrophils % 46.9 %; White Blood Count 3.6 K/mcL (4.3-11.1)
[2021-12-25 06:24] LABS: BUN/Creatinine Ratio 8 (6-26); Blood Urea Nitrogen 9 mg/dL (8-23); Carbon Dioxide 26 mEq/L (23-29); Chloride 104 mEq/L (98-107); Glucose 121 mg/dL (70-105); Osmolality,Calculated 278 (280-300); Potassium 3.6 mEq/L (3.5-5.1); Sodium 134 mEq/L (136-145); eGFR For African Americans > 60 (> 60); eGFR For Non-African Americans > 60 (> 60)
[2021-12-25 07:19] VITALS: BP 142/96; PULSE 69; TEMP 97.8; O2SAT 93
[2021-12-25 07:21] LABS: Lymphocytes # 1.3 K/mcL (0.6-4.6)
[2021-12-25 07:22] LABS: Platelet Count 21 K/mcL (140-400)
[2021-12-25 07:23] LABS: Platelet Estimate Marked Decrease (Normal); Smudge Cells Present (Not Present)
[2021-12-25] MEDS: Insulin LISPRO 300 UNITS/3 ML VIAL SUBQ SCH (07:31)
[2021-12-25] MEDS ORDERED: *HR* Amiodarone 200 MG TABLET PO SCH (09:00)
== END 2021-12-25 09:42 | DRG 871 ==
LOC: 2NENU 15:26 → EMEROOARM 15:26 → SUATTDRO 20:17 → 3NENU 20:26 → SUATTDRO 12-16 15:38
PROVIDERS: ADMIT Internal Medicine; ATTEND Hospitalist
PROC: ENDOEBX (2021-12-16 15:15)

== ENCOUNTER 2022-01-01 13:07 | Inpatient (IN) ==
[2022-01-01 13:38] LABS: Red Blood Count 2.82 M/mcL (4.19-5.50); Red Cell Distribution Width 16.3 % (11.5-14.5)
[2022-01-01 13:39] LABS: Bilirubin,Urine Negative (Negative); Blood,Urine Negative (Negative); Clarity,Urine Clear (Clear); Color,Urine Yellow (Yellow); Glucose,Urine (UA) Normal (Normal); Ketones,Urine Negative (Negative); Leukocyte Esterase,Urine Negative (Negative); Nitrite,Urine Negative (Negative); PH,Urine 6.5 pH Units (5.0-8.0); Protein,Urine Trace mg/dL (Neg-Trace); Specific Gravity,Urine 1.011 (1.010-1.025)
[2022-01-01 13:40] LABS: Basophils # 0.1 K/mcL (0.0-0.2); Basophils % 1.8 %; Eosinophils # 0.6 K/mcL (0.0-0.6); Eosinophils % 14.5 %; Hematocrit 27.1 % (37.5-50.1); Hemoglobin 8.7 g/dL (12.9-16.9); Immature Platelets 2.9 % (1.1-6.1); Lymphocytes % 26.9 %; Mean Corpuscular HGB Conc 32.1 g/dL (31.6-35.5); Mean Corpuscular Hemoglobin 30.9 pg (28.0-33.3); Mean Corpuscular Volume 96.1 fL (83.0-100.0); Mean Platelet Volume 12.5 fL (9.4-12.4); Monocytes # 0.5 K/mcL (0.0-1.3); Monocytes % 14.2 %; Neutrophils # 0.9 K/mcL (1.6-8.9); Nucleated Red Blood Cells 2.4 /100 WBC (0); Segmented Neutrophils % 23.6 %; White Blood Count 3.8 K/mcL (4.3-11.1)
[2022-01-01 13:47] LABS: INR 1.7; Prothrombin Time 18.8 Seconds (9.4-12.1)
[2022-01-01 13:49] LABS: Activated Partial Thrombo Time 28.7 Seconds (26.0-36.0)
[2022-01-01 14:05] LABS: Platelet Count 20 K/mcL (140-400)
[2022-01-01 14:27] LABS: Alanine Aminotransferase 17 Units/L (7-52); Albumin 2.1 g/dL (3.5-5.7); Albumin/Globulin Ratio 0.4 (1.1-2.2); Alkaline Phosphatase 100 Units/L (34-104); Aspartate Amino Transferase 32 Units/L (13-39); BUN/Creatinine Ratio 8 (6-26); Bilirubin,Direct 0.9 mg/dL (0.0-0.2); Bilirubin,Total 1.9 mg/dL (0.3-1.0); Blood Urea Nitrogen 11 mg/dL (8-23); Calcium 6.8 mg/dL (8.6-10.3); Carbon Dioxide 27 mEq/L (23-29); Chloride 97 mEq/L (98-107); Globulin 5.3 g/dL (2.4-3.5); Glucose 160 mg/dL (70-105); Lipase 19 Units/L (11-82); Osmolality,Calculated 275 (280-300); Potassium 3.4 mEq/L (3.5-5.1); Sodium 131 mEq/L (136-145); Total Protein 7.4 g/dL (6.4-8.9); Troponin I < 0.03 ng/mL (< 0.04); eGFR For African Americans > 60 (> 60); eGFR For Non-African Americans 52 (> 60)
[2022-01-01] MEDS ORDERED: Cefepime HCl 2,000 MG in 0.9 % Sodium Chloride 10 ML IVP ONE (14:45)
[2022-01-01] MEDS ORDERED: Ondansetron 4 MG/2 ML VIAL IVP PRN (14:56)
[2022-01-01] MEDS ORDERED: Naloxone 0.4 MG/ML INJ IVP PRN (14:56)
[2022-01-01] MEDS ORDERED: Dextrose Gel 15 GM/37.5 ML TUBE PO PRN ×2 (15:06)
[2022-01-01] MEDS ORDERED: D5% in Water 1,000 ML IVC PRN (15:06)
[2022-01-01] MEDS ORDERED: *HR* Dextrose 50 % in Water (Syg) 50 ML SYRINGE IVP PRN (15:06)
[2022-01-01] MEDS ORDERED: Nitroglycerin 0.4 MG TAB.SUBL SL PRN (15:08)
[2022-01-01] MEDS ORDERED: Furosemide 40 MG/4 ML VIAL IVP SCH (15:52)
[2022-01-01] MEDS: Azithromycin 500 MG in 0.9 % Sodium Chloride 250 ML IVPB SCH (17:42)
[2022-01-01] MEDS: Calcium Gluconate 1gm/50mL 1 GM/50 ML BAG IVPB SCH ×2 (17:44→19:20)
[2022-01-01] MEDS: Furosemide 40 MG/4 ML VIAL IVP SCH (17:48)
[2022-01-01] MEDS: *HR* Amiodarone 200 MG TABLET PO SCH (17:51)
[2022-01-01] MEDS: Insulin LISPRO 300 UNITS/3 ML VIAL SUBQ SCH ×2 (17:52→21:40)
[2022-01-01 21:39] LABS: Basophils # 0.1 K/mcL (0.0-0.2); Hematocrit 27.9 % (37.5-50.1); Hemoglobin 9.1 g/dL (12.9-16.9); Immature Platelets 3.3 % (1.1-6.1); Mean Corpuscular HGB Conc 32.6 g/dL (31.6-35.5); Mean Corpuscular Volume 94.9 fL (83.0-100.0); Mean Platelet Volume 11.2 fL (9.4-12.4); Nucleated Red Blood Cells 2.3 /100 WBC (0); Red Blood Count 2.94 M/mcL (4.19-5.50); Red Cell Distribution Width 16.2 % (11.5-14.5); White Blood Count 4.8 K/mcL (4.3-11.1)
[2022-01-01 21:42] LABS: Platelet Count 24 K/mcL (140-400)
[2022-01-01 22:00] LABS: Eosinophils # 0.1 K/mcL (0.0-0.6); Lymphocytes # 2.3 K/mcL (0.6-4.6); Monocytes # 0.2 K/mcL (0.0-1.3); Neutrophils # 1.5 K/mcL (1.6-8.9)
[2022-01-01 22:01] LABS: Platelet Estimate Decreased (Normal); Reactive Lymphocytes Present (Not Present)
[2022-01-02 06:46] LABS: Mean Corpuscular Hemoglobin 31.3 pg (28.0-33.3)
[2022-01-02 06:48] LABS: Hematocrit 24.5 % (37.5-50.1); Hemoglobin 8.1 g/dL (12.9-16.9); Immature Platelets 1.7 % (1.1-6.1); Mean Corpuscular HGB Conc 33.1 g/dL (31.6-35.5); Mean Corpuscular Volume 94.6 fL (83.0-100.0); Mean Platelet Volume 9.4 fL (9.4-12.4); Nucleated Red Blood Cells 2.9 /100 WBC (0); Red Blood Count 2.59 M/mcL (4.19-5.50); Red Cell Distribution Width 16.2 % (11.5-14.5); White Blood Count 3.1 K/mcL (4.3-11.1)
[2022-01-02 06:51] LABS: Platelet Count 16 K/mcL (140-400)
[2022-01-02 07:09] LABS: BUN/Creatinine Ratio 10 (6-26); Blood Urea Nitrogen 13 mg/dL (8-23); Calcium 7.6 mg/dL (8.6-10.3); Carbon Dioxide 27 mEq/L (23-29); Chloride 100 mEq/L (98-107); Glucose 122 mg/dL (70-105); Osmolality,Calculated 275 (280-300); Phosphorous 3.6 mg/dL (2.7-4.5); Potassium 3.6 mEq/L (3.5-5.1); Sodium 132 mEq/L (136-145); eGFR For African Americans > 60 (> 60); eGFR For Non-African Americans 56 (> 60)
[2022-01-02 07:37] LABS: Eosinophils # 0.1 K/mcL (0.0-0.6); Lymphocytes # 1.2 K/mcL (0.6-4.6); Monocytes # 0.3 K/mcL (0.0-1.3); Neutrophils # 1.5 K/mcL (1.6-8.9)
[2022-01-02 07:38] LABS: Anisocytosis 1+ (Not Present); Platelet Estimate Marked Decrease (Normal)
[2022-01-02] MEDS: Insulin LISPRO 300 UNITS/3 ML VIAL SUBQ SCH ×4 (09:53→23:05)
[2022-01-02] MEDS: *HR* Amiodarone 200 MG TABLET PO SCH (09:54)
[2022-01-02] MEDS: cefTRIAXone 1,000 MG in 0.9 % Sodium Chloride 10 ML IVP SCH (09:54)
[2022-01-02] MEDS: Spironolactone 12.5 MG TABLET PO SCH (09:56)
[2022-01-02] MEDS: Furosemide 40 MG/4 ML VIAL IVP SCH (09:56)
[2022-01-02] MEDS ORDERED: *HR* LORazepam 2 MG/ML VIAL IVP ONE (10:41)
[2022-01-02 10:47] LABS: Mean Corpuscular HGB Conc 32.5 g/dL (31.6-35.5); White Blood Count 3.1 K/mcL (4.3-11.1)
[2022-01-02 10:49] LABS: Hematocrit 25.2 % (37.5-50.1); Hemoglobin 8.2 g/dL (12.9-16.9); Immature Platelets 2.3 % (1.1-6.1); Mean Corpuscular Hemoglobin 31.5 pg (28.0-33.3); Mean Corpuscular Volume 96.9 fL (83.0-100.0); Mean Platelet Volume 11.8 fL (9.4-12.4); Monocytes # 0.5 K/mcL (0.0-1.3); Nucleated Red Blood Cells 2.3 /100 WBC (0); Red Cell Distribution Width 15.9 % (11.5-14.5)
[2022-01-02 10:50] LABS: Platelet Count 17 K/mcL (140-400)
[2022-01-02 10:56] LABS: VBG HCO3 26 mEq/L (21-27); VBG PCO2 47 mmHg (41-51); VBG PH 7.36 pH Units (7.32-7.42); VBG PO2 53 mmHg (25-50)
[2022-01-02 11:24] LABS: Anisocytosis 1+ (Not Present); Basophils # 0.1 K/mcL (0.0-0.2); Eosinophils # 0.1 K/mcL (0.0-0.6); Lymphocytes # 1.5 K/mcL (0.6-4.6); Neutrophils # 0.8 K/mcL (1.6-8.9); Platelet Estimate Marked Decrease (Normal); Reactive Lymphocytes Present (Not Present)
[2022-01-02 11:25] LABS: Microcytosis Present (Not Present)
[2022-01-02 11:31] LABS: Influenza A PCR Negative (Negative); Influenza B PCR Negative (Negative); Resp. Syncytial Virus PCR Negative (Negative)
[2022-01-02 11:32] LABS: SARS-CoV-2 by PCR (In House) Negative (Negative)
[2022-01-02 13:55] LABS: Alanine Aminotransferase 16 Units/L (7-52); Albumin 2.1 g/dL (3.5-5.7); Albumin/Globulin Ratio 0.4 (1.1-2.2); Alkaline Phosphatase 89 Units/L (34-104); Aspartate Amino Transferase 30 Units/L (13-39); BUN/Creatinine Ratio 10 (6-26); Bilirubin,Direct 0.9 mg/dL (0.0-0.2); Bilirubin,Indirect 0.6 mg/dL (0.0-1.0); Bilirubin,Total 1.5 mg/dL (0.3-1.0); Blood Urea Nitrogen 12 mg/dL (8-23); Calcium 7.8 mg/dL (8.6-10.3); Carbon Dioxide 27 mEq/L (23-29); Chloride 99 mEq/L (98-107); Globulin 5.5 g/dL (2.4-3.5); Glucose 127 mg/dL (70-105); Magnesium 1.8 mg/dL (1.6-2.6); Osmolality,Calculated 277 (280-300); Potassium 3.4 mEq/L (3.5-5.1); Sodium 133 mEq/L (136-145); Total Protein 7.6 g/dL (6.4-8.9); eGFR For African Americans > 60 (> 60); eGFR For Non-African Americans 57 (> 60)
[2022-01-02 14:12] LABS: Prolactin 9.47 ng/mL (3.00-14.70)
[2022-01-02] MEDS: Azithromycin 500 MG in 0.9 % Sodium Chloride 250 ML IVPB SCH (15:18)
[2022-01-03 05:14] LABS: Red Blood Count 2.59 M/mcL (4.19-5.50)
[2022-01-03 05:16] LABS: Hematocrit 24.9 % (37.5-50.1); Immature Platelets 2.3 % (1.1-6.1); Mean Corpuscular HGB Conc 32.1 g/dL (31.6-35.5); Mean Corpuscular Hemoglobin 30.9 pg (28.0-33.3); Mean Corpuscular Volume 96.1 fL (83.0-100.0); Mean Platelet Volume 9.2 fL (9.4-12.4); Red Cell Distribution Width 16.1 % (11.5-14.5); White Blood Count 3.5 K/mcL (4.3-11.1)
[2022-01-03 05:30] LABS: Platelet Count 18 K/mcL (140-400)
[2022-01-03 05:32] LABS: Alanine Aminotransferase 20 Units/L (7-52); Albumin/Globulin Ratio 0.4 (1.1-2.2); Alkaline Phosphatase 88 Units/L (34-104); Aspartate Amino Transferase 47 Units/L (13-39); BUN/Creatinine Ratio 9 (6-26); Bilirubin,Direct 0.6 mg/dL (0.0-0.2); Bilirubin,Indirect 0.7 mg/dL (0.0-1.0); Bilirubin,Total 1.3 mg/dL (0.3-1.0); Blood Urea Nitrogen 10 mg/dL (8-23); Calcium 7.8 mg/dL (8.6-10.3); Carbon Dioxide 27 mEq/L (23-29); Chloride 101 mEq/L (98-107); Globulin 5.4 g/dL (2.4-3.5); Glucose 94 mg/dL (70-105); Magnesium 2.2 mg/dL (1.6-2.6); Osmolality,Calculated 275 (280-300); Potassium 3.8 mEq/L (3.5-5.1); Sodium 133 mEq/L (136-145); Total Protein 7.4 g/dL (6.4-8.9); eGFR For African Americans > 60 (> 60); eGFR For Non-African Americans > 60 (> 60)
[2022-01-03 06:05] LABS: Eosinophils # 0.6 K/mcL (0.0-0.6); Lymphocytes # 1.5 K/mcL (0.6-4.6); Monocytes # 0.4 K/mcL (0.0-1.3); Neutrophils # 0.9 K/mcL (1.6-8.9); Platelet Estimate Decreased (Normal)
[2022-01-03] MEDS: Insulin LISPRO 300 UNITS/3 ML VIAL SUBQ SCH ×4 (08:09→21:36)
[2022-01-03] MEDS: Spironolactone 12.5 MG TABLET PO SCH (09:59)
[2022-01-03] MEDS: cefTRIAXone 1,000 MG in 0.9 % Sodium Chloride 10 ML IVP SCH (09:59)
[2022-01-03] MEDS: *HR* Amiodarone 200 MG TABLET PO SCH (10:00)
[2022-01-03] MEDS: Azithromycin 500 MG in 0.9 % Sodium Chloride 250 ML IVPB SCH (15:59)
[2022-01-03] MEDS ORDERED: *HR* Adenosine 6 MG/2 ML VIAL IVP ONE (20:51)
[2022-01-04] MEDS: Insulin LISPRO 300 UNITS/3 ML VIAL SUBQ SCH ×4 (08:39→21:00)
[2022-01-04] MEDS: cefTRIAXone 1,000 MG in 0.9 % Sodium Chloride 10 ML IVP SCH (08:50)
[2022-01-04] MEDS: *HR* Amiodarone 200 MG TABLET PO SCH (08:50)
[2022-01-04] MEDS: Spironolactone 12.5 MG TABLET PO SCH (08:52)
[2022-01-04 09:59] LABS: Hemoglobin 8.1 g/dL (12.9-16.9); Mean Corpuscular Volume 96.9 fL (83.0-100.0); Red Cell Distribution Width 15.9 % (11.5-14.5)
[2022-01-04 10:01] LABS: Basophils # 0.1 K/mcL (0.0-0.2); Basophils % 1.4 %; Eosinophils # 0.4 K/mcL (0.0-0.6); Immature Granulocytes % 16.8 % (0-4); Immature Platelets 2.6 % (1.1-6.1); Lymphocytes # 1.4 K/mcL (0.6-4.6); Mean Corpuscular HGB Conc 32.4 g/dL (31.6-35.5); Mean Corpuscular Hemoglobin 31.4 pg (28.0-33.3); Mean Platelet Volume 11.5 fL (9.4-12.4); Monocytes # 0.4 K/mcL (0.0-1.3); Neutrophils # 0.7 K/mcL (1.6-8.9); Nucleated Red Blood Cells 2.2 /100 WBC (0); Red Blood Count 2.58 M/mcL (4.19-5.50); White Blood Count 3.6 K/mcL (4.3-11.1)
[2022-01-04 10:18] LABS: BUN/Creatinine Ratio 10 (6-26); Blood Urea Nitrogen 11 mg/dL (8-23); Calcium 7.6 mg/dL (8.6-10.3); Carbon Dioxide 25 mEq/L (23-29); Chloride 99 mEq/L (98-107); Glucose 155 mg/dL (70-105); Magnesium 2.2 mg/dL (1.6-2.6); Osmolality,Calculated 269 (280-300); Sodium 128 mEq/L (136-145); eGFR For African Americans > 60 (> 60); eGFR For Non-African Americans > 60 (> 60)
[2022-01-04 10:31] LABS: Reactive Lymphocytes Present (Not Present)
[2022-01-04 10:32] LABS: Hypochromasia Present (Not Present); Platelet Estimate Marked Decrease (Normal)
[2022-01-04 10:35] LABS: Eosinophils % 11.8 %; Lymphocytes % 38.8 %; Monocytes % 11.8 %; Platelet Count 16 K/mcL (140-400); Segmented Neutrophils % 19.4 %
[2022-01-04 10:43] LABS: Folate 13.9 ng/mL (3.0-16.0)
[2022-01-04 11:59] LABS: Vitamin B12 > 1500 pg/mL (250-1100)
[2022-01-04] MEDS: Azithromycin 500 MG in 0.9 % Sodium Chloride 250 ML IVPB SCH (15:46)
[2022-01-04] MEDS ORDERED: Pantoprazole 40 MG VIAL IVP ONE (15:56)
[2022-01-04] MEDS ORDERED: *HR* LORazepam 2 MG/ML VIAL IM STA (20:13)
[2022-01-05] MEDS ORDERED: *HR* LORazepam 2 MG/ML VIAL IM STA (01:20)
[2022-01-05] MEDS: Insulin LISPRO 300 UNITS/3 ML VIAL SUBQ SCH ×2 (07:55→11:53)
[2022-01-05] MEDS: cefTRIAXone 1,000 MG in 0.9 % Sodium Chloride 10 ML IVP SCH (08:01)
[2022-01-05] MEDS: *HR* Amiodarone 200 MG TABLET PO SCH (08:01)
[2022-01-05] MEDS: Spironolactone 12.5 MG TABLET PO SCH (08:11)
[2022-01-05 11:49] VITALS: BP 94/60; PULSE 75; TEMP 97.3; O2SAT 93
[2022-01-05 12:58] LABS: Nucleated Red Blood Cells 2.1 /100 WBC (0); Red Cell Distribution Width 15.9 % (11.5-14.5)
[2022-01-05 13:00] LABS: Hematocrit 24.2 % (37.5-50.1); Hemoglobin 7.7 g/dL (12.9-16.9); Immature Platelets 2.4 % (1.1-6.1); Mean Corpuscular HGB Conc 31.8 g/dL (31.6-35.5); Mean Corpuscular Hemoglobin 31.2 pg (28.0-33.3); Mean Platelet Volume 10.7 fL (9.4-12.4); Monocytes # 0.5 K/mcL (0.0-1.3); Red Blood Count 2.47 M/mcL (4.19-5.50); White Blood Count 2.8 K/mcL (4.3-11.1)
[2022-01-05 13:36] LABS: Platelet Count 15 K/mcL (140-400)
[2022-01-05 14:04] LABS: Basophils # 0.1 K/mcL (0.0-0.2); Eosinophils # 0.3 K/mcL (0.0-0.6); Lymphocytes # 1.1 K/mcL (0.6-4.6); Platelet Estimate Marked Decrease (Normal)
[2022-01-05 14:05] LABS: Anisocytosis 1+ (Not Present)
[2022-01-05 15:06] LABS: Alanine Aminotransferase 27 Units/L (7-52); Albumin/Globulin Ratio 0.4 (1.1-2.2); Alkaline Phosphatase 93 Units/L (34-104); Aspartate Amino Transferase 51 Units/L (13-39); BUN/Creatinine Ratio 11 (6-26); Bilirubin,Direct 0.4 mg/dL (0.0-0.2); Bilirubin,Indirect 0.8 mg/dL (0.0-1.0); Bilirubin,Total 1.2 mg/dL (0.3-1.0); Blood Urea Nitrogen 12 mg/dL (8-23); Calcium 7.8 mg/dL (8.6-10.3); Carbon Dioxide 23 mEq/L (23-29); Chloride 99 mEq/L (98-107); Globulin 5.6 g/dL (2.4-3.5); Glucose 112 mg/dL (70-105); Magnesium 2.1 mg/dL (1.6-2.6); Osmolality,Calculated 269 (280-300); Potassium 4.1 mEq/L (3.5-5.1); Sodium 129 mEq/L (136-145); Total Protein 7.6 g/dL (6.4-8.9); eGFR For African Americans > 60 (> 60); eGFR For Non-African Americans > 60 (> 60)
== END 2022-01-05 18:09 | disposition home health service (06) | DRG 189 ==
LOC: EMEROOARM 13:07 → 2ANU 13:07 → SUATTDRO 15:48 → 2ANU 17:30
PROVIDERS: ADMIT General Practice; ATTEND Pharmacist